=== PATIENT | male | born 1960 | race Caucasian/White ===

== ENCOUNTER 2024-02-13 11:39 | Emergency (ER) | payer MEDICARE, OTHER, SELFPAY ==
[2024-02-13 11:45] VITALS: BP 164/96
[2024-02-13 11:58] LABS: % Eosinophils 2.9 % (0-6); % Immature Granulocytes 0.9 % (0-0.5); % Lymphocytes 20.2 % (20.5-51.1); % Monocytes 9.6 % (1.7-9.3); % Neutrophils 65.4 % (42.2-75.2); Absolute Basophils 0.1 10^3/uL (0-0.2); Absolute Eosinophils 0.2 10^3/uL (0-0.7); Absolute Immature Granulocytes 0.1 10^3/uL (0-0.05); Absolute Lymphocytes 1.4 10^3/uL (1.2-3.4); Absolute Monocytes 0.7 10^3/uL (0.1-0.6); Absolute Neutrophils 4.5 10^3/uL (1.4-6.5); Mean Corp Hgb Conc. 35.6 g/dL (33.0-37.0); Mean Corpuscular Hgb 32.9 pg (27.0-31.0); Mean Corpuscular Volume 92.6 fL (80.0-94.0); Nucleated Red Blood Cells % 0 % (-); Platelet Count 173 10^3/uL (130-400); Red Blood Cell Count 4.86 10^6/uL (4.70-6.10); Red Cell Dist. Width 12.4 % (11.5-14.5); White Blood Cell Count 6.8 10^3/uL (4.8-10.8)
[2024-02-13 12:15] LABS: Blood Urea Nitrogen 24 mg/dl (9-20); Calcium 9.4 mg/dl (8.4-10.2); Carbon Dioxide 20 mmol/L (22-30); Chloride 102 mmol/L (98-107); Glucose 257 mg/dl (70-99); Sodium 139 mmol/L (135-145); eGFR > 60.00
[2024-02-13 12:22] LABS: Troponin I < 0.012 ng/ml
--- NOTE | 2024-02-13 14:20 | ED.GENMED ---
History of Present Illness
<Tam Carpenter PA-C - Last Filed: 02/13/24 17:48>
General
Chief Complaint: Chest Pain
Source: patient
Time Seen by Provider: 02/13/24 14:13
History of Present Illness
History of Present Illness:
63-year-old male with past medical history of CAD, previous NV, hypertension, hyperlipidemia, paroxysmal atrial fibrillation, GERD, [id number] diabetes presenting to the emergency department for evaluation after he started experiencing a
few days of left-sided sternal discomfort that radiates underneath the left breast, somewhat waxes and wanes, described to be a dull aching/pressure-like sensation. Patient notes that there is no exacerbating or alleviating factors with the pain
however he does note that while exerting himself he does experience some minor shortness of breath. At present time patient states he is symptom-free. He does note that he had seen his branch or department chief librarian 5 days ago but states was not having any of the
symptoms at that time and on his regular visit stated there were no abnormalities. His branch or department chief librarian had removed him off of Brilinta and started the patient on Plavix. Patient also takes a daily 81 mg. Also of note, patient recently returned from
[facility] at the beginning of January, states he developed some cold and flulike symptoms following and has had a lingering cough but denies any hemoptysis.
Past History
<Amanda Smith DO - Last Filed: >
Past History
ED Past Medical History: Arrthythmia (Atrial fib, ), CAD, GERD, HTN, Hypercholesterolemia, NIDDM, NV and Other (Diabetic neuropathy, PNA, Sleep apnea, Esophageal spasm )
ED Past Surgical History: Appendectomy and Cardiac (Coronary artery bypass graft x3, RCA stent , Stents X 4)
Social History
Tobacco: Non-smoker
Alcohol: None
Drug: None
Personal: Single
Living: alone
Employment: Employed
Review of Systems
<Tam Carpenter PA-C - Last Filed: 02/13/24 17:48>
Review of Systems
All Other Systems: ROS reviewed and negative except as documented in HPI and ROS
Phy Exam
<Tam Carpenter PA-C - Last Filed: 02/13/24 17:48>
Physical Exam
Physical Exam:
GENERAL: Alert , in no apparent distress
HEAD: NCAT
EYE: clear conjunctiva
NECK: Supple
ENT: o/p clr, mmm.
CARDIAC: Regular rate and rhythm, no murmur .
LUNGS: Clear breath sounds bilaterally, no acute respiratory distress, no wheezes/rales/rhonchi
ABDOMEN: Soft, without focal tenderness, no r/g, no cvat
NEUROLOGICAL: Alert and oriented
SKIN: Warm and dry, skin intact.
MUSCULOSKELETAL: No edema, well perfused.
PSYCH: Normal and appropriate interaction.
Scores
<Tam Carpenter PA-C - Last Filed: 02/13/24 17:48>
Heart Failure Risk
Heart Failure Risk Score: Not Applicable
Heart Score for Chest Pain Patients
STEMI patient?: No
History: Moderately Suspicious
ECG: Normal
Age: >/= 65 years
Risk Factors: >/= 3 Risk Factors or History of CAD
Troponin: </= Normal Limit
Heart Score for Chest Pain Patients: 5
Heart Score Risk: 20.3% MACE over next 6 weeks
Withdrawal Assessment of Alcohol
Withdrawal Assessment Completed?: Not applicable
Course
<Tam Carpenter PA-C - Last Filed: 02/13/24 17:48>
Orders/Labs/Results
Orders:
Orders
02/13/24 11:40
Electrocardiogram (*1) Urgent
Reason for Study: Chest Pain
02/13/24 11:41
EKG- Treatment ONCE
EKG- Treatment ONCE
02/13/24 11:51
Basic Metabolic Panel Urgent
Complete Blood Count/With Diff Urgent
NT-proBNP Urgent
Comment: ADD ON
Troponin I Urgent
02/13/24 14:13
Add On- LAB Urgent
Tests Added?: BNP
02/13/24 14:34
D-Dimer Urgent
02/13/24 14:48
Troponin I Urgent
02/13/24 15:17
CR Chest - 2 Views Urgent
Comment:
Reason For Exam: chest pain, RIVERA
02/13/24 16:18
Electrocardiogram (*1) Urgent
Reason for Study: Chest Pain
EKG- Treatment ONCE
Abnormal Lab Results
02/13/24
11:51
MCH 32.9 H pg
(27.0-31.0)
Abs Immat Gran (auto) 0.1 H 10^3/uL
(0-0.05)
Absolute Monos (auto) 0.7 H 10^3/uL
(0.1-0.6)
Immature Gran % 0.9 H %
(0-0.5)
Lymphocytes % 20.2 L %
(20.5-51.1)
Monocytes % 9.6 H %
(1.7-9.3)
Carbon Dioxide 20 L mmol/L
(22-30)
BUN 24 H mg/dl
(9-20)
Glucose 257 H mg/dl
(70-99)
02/13/24 11:51
02/13/24 11:51
Vital Signs
Initial and Last Documented VS:
Initial Vital Signs
Temp Pulse Resp BP Pulse Ox
98.3 F 96 16 164/96 100
02/13/24 11:45 02/13/24 11:45 02/13/24 11:45 02/13/24 11:45 02/13/24 11:45
Last Documented Vital Signs
Temp Pulse Resp BP Pulse Ox
98.3 F 71 15 133/80 100
02/13/24 11:45 02/13/24 16:15 02/13/24 16:15 02/13/24 16:11 02/13/24 16:15
<Amanda Smith, DO - Last Filed: >
Orders/Labs/Results
Orders:
Orders
02/13/24 11:40
Electrocardiogram (*1) Urgent
Reason for Study: Chest Pain
02/13/24 11:41
EKG- Treatment ONCE
EKG- Treatment ONCE
02/13/24 11:51
Basic Metabolic Panel Urgent
Complete Blood Count/With Diff Urgent
NT-proBNP Urgent
Comment: ADD ON
Troponin I Urgent
02/13/24 14:13
Add On- LAB Urgent
Tests Added?: BNP
02/13/24 14:34
D-Dimer Urgent
02/13/24 14:48
Troponin I Urgent
02/13/24 15:17
CR Chest - 2 Views Urgent
Comment:
Reason For Exam: chest pain, RIVERA
02/13/24 16:18
Electrocardiogram (*1) Urgent
Reason for Study: Chest Pain
EKG- Treatment ONCE
Abnormal Lab Results
02/13/24
11:51
MCH 32.9 H pg
(27.0-31.0)
Abs Immat Gran (auto) 0.1 H 10^3/uL
(0-0.05)
Absolute Monos (auto) 0.7 H 10^3/uL
(0.1-0.6)
Immature Gran % 0.9 H %
(0-0.5)
Lymphocytes % 20.2 L %
(20.5-51.1)
Monocytes % 9.6 H %
(1.7-9.3)
Carbon Dioxide 20 L mmol/L
(22-30)
BUN 24 H mg/dl
(9-20)
Glucose 257 H mg/dl
(70-99)
02/13/24 11:51
02/13/24 11:51
Vital Signs
Initial and Last Documented VS:
Initial Vital Signs
Temp Pulse Resp BP Pulse Ox
98.3 F 96 16 164/96 100
02/13/24 11:45 02/13/24 11:45 02/13/24 11:45 02/13/24 11:45 02/13/24 11:45
Last Documented Vital Signs
Temp Pulse Resp BP Pulse Ox
98.3 F 71 15 133/80 100
02/13/24 11:45 02/13/24 16:15 02/13/24 16:15 02/13/24 16:11 02/13/24 16:15
<Tam Carpenter PA-C - Last Filed: 02/13/24 17:48>
MDM/Problems Addressed
Differential Diagnosis Includes:
ACS, PE, pleurisy, pneumonia
MDM/Problems Addressed:
63-year-old male presenting the emergency department for evaluation of a few days of chest discomfort with associated mild exertional dyspnea. Patient does note recent cold/flu and long travel at the beginning of January. Asymptomatic here.
Hypertensive in triage. Labs were initiated in triage and patient was noted to have hyperglycemia but otherwise unremarkable workup including a negative troponin. I did add on a BNP as well as D-dimer to patient's lab work. Will also repeat
troponin. Disposition pending.
Chronic conditions affecting care: CAD
<Tam Carpenter PA-C - Last Filed: 02/13/24 17:48>
*Radiology
Radiology exam reviewed: preliminary read by ED provider (No effusion, pneumonia or pneumothorax)
*Pulse Oximetry
Patient hypoxic: no
*EKG
Interpreted by ED Provider?: Yes
Heart Rate: 92
Rate: normal
Rhythm: sinus
Dagmar: normal axis
Ischemia: no ischemia
*Hvac Engineering Technician Interpretation
Rate: normal
Rhythm: sinus
*Critical Care Note
Total Time (30-74mins, 75-104mins- exclusive of procedures): Not Applicable
Data Reviewed
Review of Other/Old Records Reveals: Labs and Records
<Tam Carpenter PA-C - Last Filed: 02/13/24 17:48>
Patient Management
Escalation/DeEscalation of care consider admission/obs:
Patient's repeat troponin and EKG are without any evidence for ischemia. BNP is within normal limits and D-dimer is negative. Patient stable for discharge home and outpatient follow-up with his cardiology team. Aware of return precautions to the
ER.
ED Attending Note
<Amanda Smith DO - Last Filed: >
-
Portions of this chart may have been created with voice recognition software.� Occasional wrong word or��sound alike� substitutions may have occurred due to the inherent limitations of voice recognition software.
Discharge Plan
Departure
Patient Disposition: Home (Routine Discharge)
Date of Disposition: 02/13/24
Time of Disposition: 16:12
Patient with high blood pressure during this ER visit?: Yes
Discharge Problem:
Chest pain
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
Prescriptions:
No Action
aspirin 81 MG tablet,delayed release (DR/EC)
81 mg PO DAILY
atorvastatin 40 MG tablet
40 mg PO HS
icosapent ethyl [Vascepa] 1 GM capsule
2 gm PO BID
Jardiance 25 MG tablet
25 mg PO DAILY
pantoprazole 40 MG tablet,delayed release (DR/EC)
40 mg PO BID Qty: 30 11RF
metoprolol succinate 25 MG tablet extended release 24 hr
25 mg PO BID Qty: 60 11RF
metformin 500 MG tablet extended release 24 hr
2,000 mg PO DAILY@1700
Brilinta 90 MG tablet
90 mg PO BID
nitroglycerin 0.4 mg tablet, sublingual
0.4 mg sublingual Q5MX3 PRN (Reason: chest pain)
gabapentin 300 mg capsule
300 mg PO TID@0700,1500,2300
Advil PM 200-38 mg Tablet
2 cap PO HS PRN (Reason: sleep)
Gaviscon 80-14.2 mg Tablet,Chewable
1 tab PO DAILY PRN (Reason: gerd)
Referrals:
Young Elizondo DO [Family Provider] -
Interventions
Interventions:
*Risk Screen - Suicide Last Done: 02/13/24 14:26
*General Assessment Last Done: 02/13/24 14:26
*Neglect/Abuse Screening Last Done: 02/13/24 14:26
ED- Fall Risk Assessment Last Done: 02/13/24 14:26
*ED COVID-19 Vaccine History Last Done: 02/13/24 14:26
*Nursing Disposition Last Done: 02/13/24 16:35
ED- Cardiac Assessment Last Done: 02/13/24 15:16
Discharge Date and Time
Discharge Date/Time: 02/13/24 16:36
Print Language: MALDIVIAN
[2024-02-13 14:26] VITALS: BMI 27.7
[2024-02-13 14:29] VITALS: BP 134/91
[2024-02-13 15:00] VITALS: BP 120/82
[2024-02-13 15:16] LABS: D-Dimer < 0.27 ug/mlFEU (0.00-0.50)
[2024-02-13 15:24] LABS: Troponin I < 0.012 ng/ml
[2024-02-13 15:29] LABS: NT-proBNP 88.4 pg/ml
[2024-02-13 16:00] VITALS: BP 130/80
[2024-02-13 16:11] VITALS: BP 133/80
== END 2024-02-13 16:36 | disposition home or self-care (01) ==
LOC: EMR 11:39
PROVIDERS: Emergency Medicine; Physician Assistant Medical; EMERGENCY PHYSICIAN Student in an Organized Health Care Education/Training Program; FAMILY PHYSICIAN Student in an Organized Health Care Education/Training Program
DX: R07.89 Other chest pain (principal); I25.10 Atherosclerotic heart disease of native coronary artery without angina pectoris; I10 Essential (primary) hypertension; I25.2 Old myocardial infarction; E11.40 Type 2 diabetes mellitus with diabetic neuropathy, unspecified; E78.00 Pure hypercholesterolemia, unspecified; G47.30 Sleep apnea, unspecified; K21.9 Gastro-esophageal reflux disease without esophagitis; Z79.02 Long term (current) use of antithrombotics/antiplatelets; Z90.49 Acquired absence of other specified parts of digestive tract; Z95.1 Presence of aortocoronary bypass graft; Z95.5 Presence of coronary angioplasty implant and graft
CPT/HCPCS: 99283; 71046; 80048; 83880; 84484; 85025; 85379; 93005